=== PATIENT | male | born 1995 | race Caucasian/White ===

== ENCOUNTER 2018-01-06 10:31 | Emergency (ER) | payer OTHER ==
[2018-01-06] MEDS ORDERED: Tetracaine HCl/PF 0.5% 4 ML Bottle EYERT ONE (10:33)
[2018-01-06] MEDS ORDERED: Fluorescein 1 MG Ophth Strip EYERT ONE (10:34)
[2018-01-06] MEDS ORDERED: Gentamicin 0.3% Ophth Soln 5 ML Bottle EYERT ONE (11:01)
--- NOTE | 2018-01-06 11:08 | EDM.PDOC ---
Scribed by Lexi Mckeon 01/06/18 1108 for Jay Jay Blunt MD ED HPI GENERAL MEDICAL PROBLEM - General Chief Complaint: ENT Problem Stated Complaint: [id number] SOMETHING IN EYE Time Seen by Provider: 01/06/18 10:34 Source of Information: Reports: Patient, RN, RN Notes Reviewed History Limitations: Reports: No Limitations - History of Present Illness INITIAL COMMENTS - FREE TEXT/NARRATIVE: Patient presents to ER with complaint of painful left eye suspected foreign body in left eye. He is unsure what he got into his eye. The only potential source he can think of was that he was mowing the lawn yesterday without eye protection. Denies eye drainage or matting. Denies visual changes. Onset: Gradual Duration: Getting Worse Location: Reports: Other (left eye) Quality: Reports: Ache Severity: Moderate Improves with: Reports: None Worsens with: Reports: None Associated Symptoms: Reports: No Other Symptoms Left Eye Pain Score (Numeric/FACES): 3 - Related Data Allergies Allergy/AdvReac Type Severity Reaction Status Date / Time No Known Allergies Allergy Verified 05/23/14 20:02 Home Meds: Home Meds Insulin Aspart [NovoLOG] 1 unit SQ TIDAC 05/23/14 [History] Insulin Glarg,Human.Rec.Analog [Lantus Solostar] 50 units SQ BEDTIME 05/23/14 [ History] Past Medical History Endocrine/Metabolic History: Reports: Diabetes, Type I Social & Family History - Family History Family Medical History: Noncontributory ED ROS GENERAL - Review of Systems Review Of Systems: ROS reveals no pertinent complaints other than HPI. ED EXAM GENERAL W FULL EYE - Physical Exam Exam: See Below Exam Limited By: No Limitations General Appearance: Alert, WD/WN, No Apparent Distress Eye Exam: Right Eye: Normal Inspection, Left Eye: Corneal Abrasion, Bilateral Eye: EOMI, PERRL With Correction: No Eyelids: Left: Lid Everted for Exam, Bilateral: Normal Appearance Conjunctiva & Sclera: Right: Normal Appearance, Left: Injected Cornea Exam: Left: Corneal Abrasion, Examined with Flourescein Extraocular Movements: Bilateral: Intact Pupils: Normal Accommodation Pupillary Size: Bilateral: 3 mm Pupillary Reaction: Bilateral: Brisk Ears: Normal External Exam, Hearing Grossly Normal Nose: Normal Inspection Throat/Mouth: Normal Inspection Head: Atraumatic, Normocephalic Neurological: Alert, Oriented, CN II-XII Intact, No Motor/Sensory Deficits Skin Exam: Warm, Dry, Intact Course - Vital Signs Last Recorded V/S: Last Vital Signs Temp 37.0 C 01/06/18 10:31 Pulse 75 01/06/18 10:31 Resp 16 01/06/18 10:31 BP 130/72 01/06/18 10:31 Pulse Ox 99 01/06/18 10:31 - Orders/Labs/Meds Meds: Medications Discontinued Medications Generic Name Dose Route Start Last Admin Trade Name Paula PRN Reason Stop Dose Admin Fluorescein Sodium 1 mg 01/06/18 10:34 01/06/18 10:50 Ful-Tyesha EYERT 01/06/18 10:35 1 mg ONETIME ONE Administration Gentamicin Sulfate 1 ml 01/06/18 11:01 Garamycin 0.3% Ophth Soln EYERT 01/06/18 11:02 ONETIME ONE Tetracaine HCl 1 ml 01/06/18 10:33 01/06/18 10:49 Tetracaine 0.5% Steri-Unit Rimma EYERT 01/06/18 10:34 2 drop ASDIRECTED ONE Administration - Re-Assessments/Exams Free Text/Narrative Re-Assessment/Exam: 01/06/18 11:07 See rubber goods repairer for visual acuity. Departure - Departure Time of Disposition: 11:00 Disposition: Home, Self-Care 01 Condition: Good Clinical Impression: Corneal abrasion Qualifiers: Encounter type: initial encounter Laterality: left Qualified Code(s): S05.02XA - Injury of conjunctiva and corneal abrasion without foreign body, left eye, initial encounter - Discharge Information Instructions: Corneal Abrasion, [id number] Forms: ED Department Discharge Additional Instructions: Gentamicin ophthalmic solution 0.3%: 1drop to left eye 4 times a day for 5 days. Wear sunglasses for the next 3 days. Use eye protection if mowing or working. Follow up with [facility] on Monday. I have read and agree with the documentation that has been completed regarding this visit. By signing this record, I attest that the documentation was completed in my physical presence and is an accurate record of the encounter.
== END 2018-01-06 11:17 | disposition home or self-care (01) ==
LOC: DL.ED 10:31
DX: S05.02XA Injury of conjunctiva and corneal abrasion without foreign body, left eye, initial encounter (principal); E10.9 Type 1 diabetes mellitus without complications; X58.XXXA Exposure to other specified factors, initial encounter
CPT/HCPCS: 99283; A9270